=== PATIENT | female | born 1960 | race Caucasian/White ===

== ENCOUNTER 2017-12-06 13:36 | Emergency (ER) | payer SELFPAY ==
--- NOTE | 2017-12-06 13:56 | ED Physician Documentation ---
General Adult - HISTORIAN Historian: patient - HPI Stated Complaint: difficulty swallowing, diarrhea, rash, sinus pain Chief Complaint: General Adult Onset: days ago (> 1 week) Timing: still present Severity: moderate Further Comments: yes (Pt is a 57 yo female with several complaints. Pt states that she has had difficulty swallowing for several months. She is able to swallow liquids, but has trouble with solids that feel like they get stuck in her upper throat. Pt has also had pain, like sinus pressure, under her L eye, but this began after a fall in which she hit her head several weeks ago. Pt c/ o of diarrhea with loose stools but no blood for several weeks. Pt also has a rash on her upper chest that she first noticed today. Pt is chiefly concerned about her swallowing. Pt has hx thyroid d/o.) - ROS CONST: no problems EYES/ENT: other (difficulty swallowing.) CVS/RESP: none GI/: diarrhea MS/SKIN/LYMPH: rash (upper chest) - PAST HX Past History: other (Anxiety/Depression, skin cancer of face and trunk, HTH, thyroid d/o.) Surgeries/Procedures: cholecystectomy, hysterectomy, other (tonsillectomy) Allergies/Adverse Reactions: Allergies Allergy/AdvReac Type Severity Reaction Status Date / Time morphine Allergy Hallucinati Verified 12/06/17 15:10 ons Home Medications: Ambulatory Orders Medication Instructions Recorded Alprazolam [Xanax] 0.5 mg PO TID PRN 12/06/17 Levothyroxine Sodium [Synthroid] 75 mcg PO DAILY 12/06/17 Metoprolol Tartrate [Lopressor] 25 mg PO DAILY 12/06/17 Sertraline HCl [Zoloft] 100 mg PO DAILY 12/06/17 - SOCIAL HX Smoking History: non-smoker - FAMILY HX Family History: No - REVIEWED ASSESSMENTS Nursing Assessment Reviewed: Yes Vitals Reviewed: Yes Progress - Progress Progress: CT soft tissue neck w IV contrast: Nasopharyngeal region appear to be normal. Lateral pharyngeal lyle are intact. Supraglottic region is normal. Submandibular and parotid glands are normal. 1 cm nodule in the right lobe of the thyroid with a 5 mm nodule at the isthmus. No mediastinal or hilar adenopathy. No definite evidence of tumor. Carotid bifurcation is within normal limits. Impression: very small nodules in the thyroid. Normal airway. No visible mass or adenopathy. TSH pending f/u pcp for further evaluation of small thyroid nodules. Rx Bactrim DS for sinus drainage & c/o diarrhea x > 1 week. General Adult Physical Exam - PHYSICAL EXAM GENERAL APPEARANCE: mild distress (anxious) EENT: eye inspection normal, ENT inspection normal, pharynx normal NECK: normal inspection, thyroid normal, supple RESPIRATORY: no resp distress, chest non-tender, breath sounds normal CVS: reg rate & rhythm, heart sounds normal ABDOMEN: soft, no organomegaly, normal bowel sounds BACK: normal inspection, no CVA tenderness SKIN: other (two small erythematous lesions 1 cm on upper chest) EXTREMITIES: non-tender, normal range of motion NEURO: oriented X3, motor nml, sensation nml, other (mild anxiety) Discharge Clincal Impression: sinus pain, rash, diarrhea, small thyroid nodules Referrals: Primary Doctor,No [Primary Care Provider] - Condition: Stable Disposition: 01 HOME, SELF-CARE Decision to Admit: NO Decision Time: 15:51
[2017-12-06 14:31] LABS: BASOPHILS % 0.7 (0.0-1.5); EOSINOPHILS % 1.2 % (0.0-6.8); MEAN CORPUSCULAR HEMOGLOBIN 32.4 pg (28.0-34.0); MEAN CORPUSCULAR VOLUME 94.8 fl (80.0-100.0); MONOCYTES % 5.5 % (0.0-11.0)
[2017-12-06 14:56] LABS: eGFR (African) > 60; eGFR (Non-African) > 60
--- NOTE | 2017-12-06 15:57 | Diagnostic Imaging Report ---
JACQUE DERAS [facility] [address] [facility] [address] [address] Report Submission Date: Dec 06, 2017 3:40:00 PM CDT Patient Study Name: NEDRA ARNOLD Date: Dec 06, 2017 3:19:36 PM CDT Modality Type: CT\SR Gender: F Description: CT NECK SOFT TISSUE W/ : 64 Institution: [facility] Physician: JACQUE DERAS CT of the neck soft tissue technique with IV contrast Clinical history: Difficulty swallowing, history of thyroid disease 92 mL omnipaque 300 Radiation dose DLP 467 Nasopharyngeal region appear to be normal. Lateral pharyngeal lyle are intact. Supraglottic region is normal. Submandibular and parotid glands are normal. 1 cm nodule in the right lobe of the thyroid with a 5 mm nodule at the isthmus. No mediastinal or hilar adenopathy. No definite evidence of tumor. Carotid bifurcation is within normal limits. Impression: very small nodules in the thyroid. Normal airway. No visible mass or adenopathy. Electronically signed on Dec 06, 2017 3:40:00 PM CDT by: Landen VIZCARRA
[2017-12-06 16:08] VITALS: BP 132/80
== END 2017-12-06 16:02 | disposition home or self-care (01) ==
LOC: ED 13:36
DX: E04.1 Nontoxic single thyroid nodule (principal); R21 Rash and other nonspecific skin eruption; R19.7 Diarrhea, unspecified
CPT/HCPCS: 70491; 80053; 84443; 85025; 99282; Q9967; S1016